=== PATIENT | male | born 1965 | race Caucasian/White ===

== ENCOUNTER 2016-11-26 18:24 | Emergency (ER) | payer OTHER ==
[~2016-11-26] VITALS: Ht 167.6 cm; Wt 92.9 kg
[2016-11-26 19:17] LABS: HEMATOCRIT 42.9 % (38.0-50.0); MCH 28.4 PG (29.0-34.0); MCHC 32.4 G/DL (30.0-36.0); MCV 87.7 FL (86-99); MEAN PLAT.VOLUME 8.6 uM^3 (9.0-12.4); PLATELET COUNT 303 K/uL (156-360); RBC DIS.WIDTH-CV 12.9 % (11.8-14.6); RBC DIS.WIDTH-SD 41.3 % (39-53); RED BLOOD COUNT 4.89 M/uL (4.00-5.50); WHITE BLOOD COUNT 7.4 K/uL (4.1-10.2)
[2016-11-26 19:25] LABS: CHLORIDE 103 mEq/L (99-109); POTASSIUM 4.1 mEq/L (3.7-5.4); SODIUM 138 mEq/L (136-147)
[2016-11-26 19:27] LABS: GLUCOSE 94 mg/dL (70-99)
[2016-11-26 19:28] LABS: ANION GAP 9 MEQ/L (2-14)
[2016-11-26 19:29] LABS: TOTAL BILIRUBIN 0.2 mg/dL (0.0-1.0)
[2016-11-26 19:31] LABS: ALKALINE PHOSPHATASE 86 IU/L (3-129); GFR ESTIMATE (CALCULATED) > 59 mL/min/
[2016-11-26 19:32] LABS: UREA NITROGEN (BUN) 13 mg/dL (9-23)
[2016-11-26 19:34] LABS: LIPASE 78 U/L (1.0-51.0)
[2016-11-26] MEDS ORDERED: PERCOCET 5/31 TABLET PO (20:56)
[2016-11-26 21:18] VITALS: BP 166/99
== END 2016-11-26 21:22 | disposition home or self-care (01) ==
LOC: EME → EDBD 18:24 → EME 18:24
PROVIDERS: Emergency Medicine
PROC: 0HQFXZZ Repair Right Hand Skin, External Approach (ICD-10-PCS; principal; 2016-11-26)
PROC: 3E0234Z Introduction of Serum, Toxoid and Vaccine into Muscle, Percutaneous Approach (ICD-10-PCS; 2016-11-26)
DX: S61.011A Laceration without foreign body of right thumb without damage to nail, initial encounter (principal); V49.50XA Passenger injured in collision with unspecified motor vehicles in traffic accident, initial encounter; Z23 Encounter for immunization; Z87.728 Personal history of other specified (corrected) congenital malformations of nervous system and sense organs; Z96.653 Presence of artificial knee joint, bilateral; Z87.891 Personal history of nicotine dependence
CPT/HCPCS: 73130; 80053; 83690; 85027; 99281; 99284; S0020